=== PATIENT | female | born 2000 ===

== ENCOUNTER → 2024-11-11 | Outpatient (CLI) | payer MEDICAID, SELFPAY | END | disposition home or self-care (01) | PROVIDERS: PCP Internal Medicine; Referring Provider Internal Medicine; Visit Provider Student in an Organized Health Care Education/Training Program | DX: Q05.9 Spina bifida, unspecified (principal); M41.9 Scoliosis, unspecified; N31.9 Neuromuscular dysfunction of bladder, unspecified | CPT/HCPCS: 97597; 99202; A9270; G0463 ==

== ENCOUNTER → 2024-11-18 | Outpatient (CLI) | payer MEDICAID, SELFPAY | END | disposition home or self-care (01) | LOC: SWHD 13:32 | PROVIDERS: PCP Nurse Practitioner Family; Referring Provider Nurse Practitioner Family; Visit Provider Student in an Organized Health Care Education/Training Program | DX: L89.152 Pressure ulcer of sacral region, stage 2 (principal); Q05.9 Spina bifida, unspecified; M41.9 Scoliosis, unspecified; N31.9 Neuromuscular dysfunction of bladder, unspecified | CPT/HCPCS: 97597; A9270 ==

== ENCOUNTER → 2024-12-02 | Outpatient (CLI) | payer MEDICAID, SELFPAY | END | disposition home or self-care (01) | LOC: SWHD 14:44 | PROVIDERS: PCP Nurse Practitioner Family; Referring Provider Nurse Practitioner Family; Visit Provider Student in an Organized Health Care Education/Training Program | DX: L89.152 Pressure ulcer of sacral region, stage 2 (principal); Q05.9 Spina bifida, unspecified; M41.9 Scoliosis, unspecified; N31.9 Neuromuscular dysfunction of bladder, unspecified | CPT/HCPCS: 97597 ==

== ENCOUNTER → 2024-12-23 | Outpatient (CLI) | payer MEDICAID, SELFPAY | END | disposition home or self-care (01) | LOC: SWHD 11:12 | PROVIDERS: PCP Nurse Practitioner Family; Referring Provider Nurse Practitioner Family; Visit Provider Student in an Organized Health Care Education/Training Program | DX: L89.152 Pressure ulcer of sacral region, stage 2 (principal); Q05.9 Spina bifida, unspecified; M41.9 Scoliosis, unspecified; N31.9 Neuromuscular dysfunction of bladder, unspecified | CPT/HCPCS: 97597 ==

== ENCOUNTER → 2025-01-06 | Outpatient (CLI) | payer MEDICAID, SELFPAY | END | disposition home or self-care (01) | LOC: SWHD 10:58 | PROVIDERS: PCP Nurse Practitioner Family; Referring Provider Nurse Practitioner Family; Visit Provider Student in an Organized Health Care Education/Training Program | DX: L89.152 Pressure ulcer of sacral region, stage 2 (principal); Q05.9 Spina bifida, unspecified; M41.9 Scoliosis, unspecified; N31.9 Neuromuscular dysfunction of bladder, unspecified | CPT/HCPCS: 97597; A9270 ==

== ENCOUNTER → 2025-01-13 | Outpatient (CLI) | payer MEDICAID, SELFPAY | END | disposition home or self-care (01) | LOC: SWHD 10:52 | PROVIDERS: PCP Nurse Practitioner Family; Referring Provider Nurse Practitioner Family; Visit Provider Student in an Organized Health Care Education/Training Program | DX: L89.152 Pressure ulcer of sacral region, stage 2 (principal); Q05.9 Spina bifida, unspecified; N31.9 Neuromuscular dysfunction of bladder, unspecified; M41.9 Scoliosis, unspecified | CPT/HCPCS: 97597; A9270 ==

== ENCOUNTER → 2025-01-20 | Outpatient (CLI) | payer MEDICAID, SELFPAY | END | disposition home or self-care (01) | LOC: SWHD 10:55 | PROVIDERS: PCP Nurse Practitioner Family; Referring Provider Nurse Practitioner Family; Visit Provider Student in an Organized Health Care Education/Training Program | DX: L89.152 Pressure ulcer of sacral region, stage 2 (principal); Q05.9 Spina bifida, unspecified; N31.9 Neuromuscular dysfunction of bladder, unspecified; M41.9 Scoliosis, unspecified | CPT/HCPCS: 97597; A9270 ==

== ENCOUNTER → 2025-02-03 | Outpatient (CLI) | payer MEDICAID, SELFPAY | END | disposition home or self-care (01) | LOC: SWHD 14:41 | PROVIDERS: PCP Nurse Practitioner Family; Referring Provider Nurse Practitioner Family; Visit Provider Student in an Organized Health Care Education/Training Program | DX: L89.152 Pressure ulcer of sacral region, stage 2 (principal); Q05.9 Spina bifida, unspecified; N31.9 Neuromuscular dysfunction of bladder, unspecified; M41.9 Scoliosis, unspecified | CPT/HCPCS: 97597; A9270 ==

== ENCOUNTER → 2025-02-17 | Outpatient (CLI) | payer MEDICAID, SELFPAY | END | disposition home or self-care (01) | LOC: SWHD 14:46 | PROVIDERS: PCP Nurse Practitioner Family; Referring Provider Nurse Practitioner Family; Visit Provider Student in an Organized Health Care Education/Training Program | DX: L89.152 Pressure ulcer of sacral region, stage 2 (principal); Q05.9 Spina bifida, unspecified; M41.9 Scoliosis, unspecified; N31.9 Neuromuscular dysfunction of bladder, unspecified | CPT/HCPCS: 97597; A9270 ==

== ENCOUNTER → 2025-03-10 | Outpatient (CLI) | payer MEDICAID, SELFPAY | END | disposition home or self-care (01) | LOC: SWHD 14:58 | PROVIDERS: PCP Nurse Practitioner Family; Referring Provider Nurse Practitioner Family; Visit Provider Student in an Organized Health Care Education/Training Program | DX: L89.152 Pressure ulcer of sacral region, stage 2 (principal); Q05.9 Spina bifida, unspecified; N31.9 Neuromuscular dysfunction of bladder, unspecified; M41.9 Scoliosis, unspecified | CPT/HCPCS: 97597; A9270 ==